=== PATIENT | female | born 1995 | race Caucasian/White ===

== ENCOUNTER 2018-11-30 22:31 | Emergency (ER) | payer OTHER ==
[2018-11-30 22:43] VITALS: BP 161/103
[2018-11-30] MEDS ORDERED: Ondansetron 4 MG Tab.DIS PO ONE (23:03)
--- NOTE | 2018-12-01 02:28 | ER ---
REASON FOR EMERGENCY ROOM VISIT: Drainage from postoperative left neck wound. HISTORY OF PRESENT ILLNESS: This 23-year-old woman had a partial parotidectomy by Dr. Dariel Madrid, ENT in [place], [place] on 11/13/2018. She states it was for a benign lump on the parotid, but she cannot recall the exact pathology of the lesion removed. Postoperatively, she seemed to do fairly well and had a drain removed from this area on 11/16/2018. As part of the procedure, she had a portion of fat excised from her abdomen, that was implanted in the resultant space overlying the parotid gland. She states that the wound started draining slightly bloody, yellowish clear fluid on 11/25/2018, and [facility]. She was placed on Keflex 500 mg q.i.d. and has approximately 10 doses left. She has had some nausea off and on since surgery, but is not taking any Zofran. She has not had any fever or chills initially when she was seen on 11/25/2018. She states that there was some redness around the wound, but that has decreased although the drainage persists and she thinks it is somewhat thicker now than it was back then and wanted to have it checked out to make sure there was not an underlying abscess, etc. PAST MEDICAL HISTORY: She has had a history of, 1. Anxiety. 2. Depression. 3. Headaches. 4. Hemorrhagic ovarian cysts. CURRENT MEDICATIONS: Include estrogen and Keflex. ALLERGIES: To amoxicillin. REVIEW OF SYSTEMS: All pertinent positives and negatives as noted in the HPI. PHYSICAL EXAMINATION: GENERAL: She is calm, alert, in no acute distress. VITAL SIGNS: She is afebrile. Blood pressure 161/103, O2 saturations 99%, heart rate is 83, respiratory rate 16. HEENT: Head is normocephalic. NECK: She has a short clean healing wound over the region of the parotid at the proximate level of the angle of the mandible on the left side. There is a punctate opening in the midportion of the wound without any surrounding erythema to speak of. There is a slight amount of yellowish discharge from this, which does not have an odor. There is minimal expressible fluid from this. The neck is nontender. There is no significant tenderness around the wound itself. There is no cervical adenopathy. IMPRESSION: I suspect much of the drainage is due to liquefaction of the adipose tissue that was inserted to fill the space over the parotid. The antibiotics seemed to have control, not seem to have any infection at bay. At the present time, I do not feel that there is any need to add to the current antibiotic regimen. PLAN: I have recommended that she continue her antibiotics, and once they are done, she should call to get an appointment to follow up with her surgeon in a couple of days, after the New Year's holiday. If she develops increasing redness, purulence, fever, chills, etc, she should be seen sooner obviously. I also recommended that they should wash the area with bactericidal soap and water, and if they want to apply antibiotic ointment over this, that would be fine. They should probably cover it with a 4 x 4 or even a large Band-Aid as long as it is draining. All questions were answered. Because she is still having some residual nausea, I went ahead and gave her Zofran ODT 4 mg x1 now and gave her 2 to take home with her. They agree with this plan. KATHIE /[id number]
--- NOTE | 2018-12-15 07:06 | ER ---
ADDENDUM: FINAL IMPRESSION: No evidence of wound infection. MMODAL /[id number]
== END 2018-11-30 23:13 | disposition home or self-care (01) ==
LOC: JD.ED 22:31
DX: K91.89 Other postprocedural complications and disorders of digestive system (principal); Z88.1 Allergy status to other antibiotic agents; Z90.49 Acquired absence of other specified parts of digestive tract
CPT/HCPCS: 99282; A9270; 99283

== ENCOUNTER 2019-11-06 20:02 | Emergency (ER) | payer OTHER ==
[2019-11-06 20:28] VITALS: BP 158/105; PULSE 115
[2019-11-06] MEDS ORDERED: Ketorolac 30 MG/ML SDV IVPUSH ONE (20:41)
[2019-11-06] MEDS ORDERED: Sodium Chloride 0.9% 1,000 ML IV ONE ×2 (20:41→22:11)
[2019-11-06] MEDS ORDERED: Sodium Chloride 0.9% 10 ML Syringe FLUSH PRN (20:41)
[2019-11-06] MEDS ORDERED: Ondansetron 4 MG/2 ML SDV IVPUSH ONE (20:41)
--- NOTE | 2019-11-06 20:59 | EDM.PDOC ---
ED HPI GENERAL MEDICAL PROBLEM - General Chief Complaint: Gastrointestinal Problem Stated Complaint: VOMITTING, CHILLS DIARRHEA Time Seen by Provider: 11/06/19 20:30 Source of Information: Reports: Patient History Limitations: Reports: No Limitations - History of Present Illness INITIAL COMMENTS - FREE TEXT/NARRATIVE: Patient is a 24-year-old female who presents today for chills, vomiting and diarrhea. Reports that symptoms started last night. States she's vomited 5 times and has had 5 episodes of diarrhea. No blood in her emesis or stool. She reports associated chills, headaches and bodyaches. She states that she's had a little bit of a cough. She also reports back pain. No dysuria, fevers or abdominal pain. She denies any ill contacts. She denies any recent travel. Last menstrual period was about one week ago. Middle Abdomen Pain Score (Numeric/FACES): 4 - Related Data Allergies Allergy/AdvReac Type Severity Reaction Status Date / Time amoxicillin Allergy Other Verified 11/30/18 22:44 Home Meds: Home Meds Lactobacillus 3/Fos/Pantethine [Probiotic & Acidophilus] 2 tab PO DAILY [History] PARoxetine HCl [Paxil] 40 mg PO DAILY 11/30/18 [History] Omeprazole 20 mg PO BEDTIME 07/19/19 [History] metFORMIN [Glucophage XR] 500 mg PO BEDTIME 07/19/19 [History] Ondansetron [Zofran ODT] 4 mg PO Q6H PRN #20 tab.dis 11/06/19 [Rx] Past Medical History - Past Health History Medical/Surgical History: Denies Medical/Surgical History HEENT History: Reports: Impaired Vision Cardiovascular History: Reports: Hypertension Other Cardiovascular History: not on medication currently Gastrointestinal History: Reports: GERD CARDIAC TECHNOLOGIST History: Reports: Other (See Below) Other CARDIAC TECHNOLOGIST History: uterine cysts Musculoskeletal History: Reports: Back Pain, Chronic Neurological History: Reports: Headaches, Chronic Psychiatric History: Reports: Anxiety, Depression Endocrine/Metabolic History: Reports: Obesity/BMI 30+, Other (See Below) - Past Surgical History HEENT Surgical History: Reports: Oral Surgery, Other (See Below) Female Surgical History: Reports: Other (See Below) Social & Family History - Family History Family Medical History: Noncontributory Cardiac: Reports: Hypertension Endocrine/Metabolic: Reports: Diabetes, Type I Oncologic: Reports: Prostate - Tobacco Use Smoking Status *Q: Never Smoker - Caffeine Use Caffeine Use: Reports: Coffee, Soda - Recreational Drug Use Recreational Drug Use: No - Living Situation & Occupation Living situation: Reports: Single, with Significant Other (Boyfriend) Occupation: Employed ([employer]) ED ROS GENERAL - Review of Systems Review Of Systems: See Below Constitutional: Reports: Fever, Chills, Malaise Respiratory: Reports: Cough GI/Abdominal: Reports: Diarrhea, Nausea, Vomiting. Denies: Abdominal Pain, Hematemesis, Hematochezia, Melena Neurological: Reports: Headache ED EXAM, GI/ABD - Physical Exam Exam: See Below Exam Limited By: No Limitations General Appearance: Alert, WD/WN, No Apparent Distress, Obese Ears: Normal External Exam Nose: Normal Inspection Throat/Mouth: Normal Inspection, Normal Lips, Normal Oropharynx, Normal Voice, No Airway Compromise Neck: Normal Inspection, Supple, Full Range of Motion Respiratory/Chest: No Respiratory Distress, Lungs Clear, Normal Breath Sounds Cardiovascular: Normal Peripheral Pulses, Regular Rate, Rhythm, No Murmur GI/Abdominal Exam: Normal Bowel Sounds, Soft, Non-Tender Back Exam: No: CVA Tenderness (L), CVA Tenderness (R) Neurological: Alert, Oriented, Normal Cognition Psychiatric: Normal Affect, Normal Mood Skin Exam: Warm, Dry, Normal Color Course - Vital Signs Last Recorded V/S: Last Vital Signs Temp 97.7 F 11/06/19 20:25 Pulse 115 H 11/06/19 20:25 Resp 20 11/06/19 20:25 BP 158/105 H 11/06/19 20:25 Pulse Ox 95 11/06/19 20:25 - Orders/Labs/Meds Orders: Active Orders 24 hr Category Date Time Status Influenza Vaccine Charge [RC] .DISCHARGE Care 11/06/19 20:24 Inactive Peripheral IV Care [RC] . DIRECTED Care 11/06/19 20:41 Active Sodium Chloride 0.9% [Saline Flush] Med 11/06/19 20:41 Active 10 ml FLUSH ASDIRECTED PRN Peripheral IV Insertion Adult [OM.PC] Routine Oth 11/06/19 20:40 Ordered Medication Orders Sodium Chloride (Saline Flush) 10 ml FLUSH ASDIRECTED PRN PRN Reason: Keep Vein Open Last Admin: 11/06/19 20:58 Dose: 10 ml Labs: Laboratory Tests 11/06/19 11/06/19 11/06/19 Range/Units 21:03 21:03 22:50 WBC 8.94 (3.98-10.04) K/mm3 RBC 4.82 (3.98-5.22) M/mm3 Hgb 13.3 (11.2-15.7) gm/dl Hct 39.4 (34.1-44.9) % MCV 81.7 (79.4-94.8) fl MCH 27.6 (25.6-32.2) pg MCHC 33.8 (32.2-35.5) g/dl RDW Std Deviation 38.3 (36.4-46.3) fL Plt Count 203 (182-369) K/mm3 MPV 9.7 (9.4-12.3) fl Neut % (Auto) 76.3 H (34.0-71.1) % Lymph % (Auto) 15.1 L (19.3-51.7) % [place] % (Auto) 7.9 (4.7-12.5) % Eos % (Auto) 0.4 L (0.7-5.8) Baso % (Auto) 0.2 (0.1-1.2) % Neut # (Auto) 6.81 H (1.56-6.13) K/mm3 Lymph # (Auto) 1.35 (1.18-3.74) K/mm3 [place] # (Auto) 0.71 H (0.24-0.36) K/mm3 Eos # (Auto) 0.04 (0.04-0.36) K/mm3 Baso # (Auto) 0.02 (0.01-0.08) K/mm3 Sodium 132 L (136-145) mEq/L Potassium 3.3 L (3.5-5.1) mEq/L Chloride 99 (98-107) mEq/L Carbon Dioxide 24 (21-32) mEq/L Anion Gap 12.3 (5-15) BUN 9 (7-18) mg/dL Creatinine 0.8 (0.55-1.02) mg/dL Est Cr Clr Drug Dosing 120.15 mL/min Estimated GFR (MDRD) > 60 (>60) mL/min BUN/Creatinine Ratio 11.3 L (14-18) Glucose 101 (74-106) mg/dL Calcium 8.8 (8.5-10.1) mg/dL Total Bilirubin 0.7 (0.2-1.0) mg/dL AST 30 (15-37) U/L ALT 40 (14-59) U/L Alkaline Phosphatase 78 (46-116) U/L Total Protein 8.1 (6.4-8.2) g/dl Albumin 3.8 (3.4-5.0) g/dl Globulin 4.3 gm/dL Albumin/Globulin Ratio 0.9 L (1-2) Urine Color Yellow (Yellow) Urine Appearance Clear (Clear) Urine pH 6.5 (5.0-8.0) Ur Specific [place] 1.015 (1.005-1.030) Urine Protein Negative (Negative) Urine Glucose (UA) Negative (Negative) Urine Ketones Negative (Negative) Urine Occult Blood Negative (Negative) Urine Nitrite Negative (Negative) Urine Bilirubin Negative (Negative) Urine Urobilinogen 1.0 (0.2-1.0) Ur Leukocyte Esterase Negative (Negative) Urine RBC 0-5 (0-5) /hpf Urine WBC 0-5 (0-5) /hpf Ur Squamous Epith Cells 0-5 (0-5) /hpf Urine Bacteria Few (FEW) /hpf Urine Mucus Moderate H (FEW) /hpf Meds: Medications Generic Name Dose Route Start Last Admin Trade Name Genoveva PRN Reason Stop Dose Admin Sodium Chloride 10 ml 11/06/19 20:41 11/06/19 20:58 Saline Flush FLUSH 10 ml ASDIRECTED PRN Administration Keep Vein Open Discontinued Medications Generic Name Dose Route Start Last Admin Trade Name Genoveva PRN Reason Stop Dose Admin Acetaminophen 975 mg 11/06/19 22:11 11/06/19 22:27 Tylenol PO 11/06/19 22:12 975 mg NOW ONE Administration Sodium Chloride 1,000 mls @ 999 mls/hr 11/06/19 20:41 11/06/19 20:57 Normal Saline IV 11/06/19 21:41 999 mls/hr ONETIME ONE Administration Sodium Chloride 1,000 mls @ 999 mls/hr 11/06/19 22:11 11/06/19 22:27 Normal Saline IV 11/06/19 23:11 999 mls/hr ONETIME ONE Administration Influenza Virus Vaccine 1 each 11/06/19 20:24 Pharmacy To Dose - Influenza Vaccine IM 11/06/19 20:25 ONETIME ONE Influenza Virus Vaccine 60 mcg 11/06/19 21:00 Fluzone Quad [id number] Syringe IM 11/06/19 21:01 .ONCE ONE Ketorolac Tromethamine 30 mg 11/06/19 20:41 11/06/19 20:58 Toradol IVPUSH 11/06/19 20:42 30 mg ONETIME ONE Administration Ondansetron HCl 4 mg 11/06/19 20:41 11/06/19 20:58 Zofran IVPUSH 11/06/19 20:42 4 mg ONETIME ONE Administration - Re-Assessments/Exams Free Text/Narrative Re-Assessment/Exam: 11/06/19 22:10 Checked on the patient. She did feel better but now her headache and back pain are returning. I will order some Tylenol and another NS. Awaiting UA still. 11/06/19 23:23 I checked on the patient. She is feeling much better. We will discharge her home with some Zofran. Due to her lab results with her. Discharge instructions as documented. Departure - Departure Time of Disposition: 23:23 Disposition: Home, Self-Care 01 Condition: Good Clinical Impression: Viral gastroenteritis - Discharge Information *PRESCRIPTION DRUG MONITORING PROGRAM REVIEWED*: No *COPY OF PRESCRIPTION DRUG MONITORING REPORT IN PATIENT CONSTANTINO: No Prescriptions: Ondansetron [Zofran ODT] 4 mg PO Q6H PRN #20 tab.dis PRN Reason: Nausea Referrals: Dena Cruz MD [Primary Care Provider] - Forms: ED Department Discharge Additional Instructions: Take the Zofran as prescribed. 1 tab sublingual 6 to 8 hours as needed for nausea. Recommend yogurt or probiotic to help with your side effects. Recommend clear fluids and bland diet. You may advance to more normal diet as tolerated. Follow up with your primary care provider if not much better in 3-5 days. Please return to the ER if your symptoms change or worsen. - My Orders Last 24 Hours: My Active Orders 11/06/19 20:24 Influenza Vaccine Charge [RC] .DISCHARGE 11/06/19 20:40 Peripheral IV Insertion Adult [OM.PC] Routine 11/06/19 20:41 Peripheral IV Care [RC] . DIRECTED Sodium Chloride 0.9% [Saline Flush] 10 ml FLUSH ASDIRECTED PRN - Assessment/Plan Last 24 Hours: My Active Orders 11/06/19 20:24 Influenza Vaccine Charge [RC] .DISCHARGE 11/06/19 20:40 Peripheral IV Insertion Adult [OM.PC] Routine 11/06/19 20:41 Peripheral IV Care [RC] . DIRECTED Sodium Chloride 0.9% [Saline Flush] 10 ml FLUSH ASDIRECTED PRN
[2019-11-06] MEDS ORDERED: FLU Vacc QS2019-20(6MOS+)/PF 60 MCG/0.5 ML SYRINGE IM ONE (21:00)
[2019-11-06] MEDS ORDERED: Acetaminophen 325 MG Tab PO ONE (22:11)
== END 2019-11-06 23:32 | disposition home or self-care (01) ==
LOC: JD.ED 20:02
DX: A08.4 Viral intestinal infection, unspecified (principal); I10 Essential (primary) hypertension; F41.9 Anxiety disorder, unspecified; F32.9 Major depressive disorder, single episode, unspecified; K21.9 Gastro-esophageal reflux disease without esophagitis; E66.9 Obesity, unspecified; Z68.41 Body mass index [BMI] 40.0-44.9, adult; Z88.1 Allergy status to other antibiotic agents; Z79.899 Other long term (current) drug therapy
CPT/HCPCS: 36415; 80053; 81001; 85025; 96361; 96374; 96375; 99284; A9270; J1885; J2405; J7030; 99283